=== PATIENT | male | born 1950 | race Caucasian/White ===

== ENCOUNTER → 2025-03-29 09:03 | Outpatient (REF) | payer MEDICARE, OTHER, SELFPAY | LOC: RCS 09:03 | PROVIDERS: ATTENDING PHYSICIAN Nuclear Medicine Nuclear Cardiology; FAMILY PHYSICIAN Internal Medicine | DX: I48.0 Paroxysmal atrial fibrillation (principal); R06.09 Other forms of dyspnea | CPT/HCPCS: 93306 ==

== ENCOUNTER → 2025-07-16 07:44 | Outpatient (REF) | payer MEDICARE, OTHER, SELFPAY | LOC: HWRCS 07:44 | PROVIDERS: ATTENDING PHYSICIAN Nuclear Medicine Nuclear Cardiology; FAMILY PHYSICIAN Internal Medicine | DX: I10 Essential (primary) hypertension (principal); I48.0 Paroxysmal atrial fibrillation; I48.4 Atypical atrial flutter; R06.09 Other forms of dyspnea | CPT/HCPCS: 78452; 93017; A9500; J2785 ==

== ENCOUNTER → 2025-08-23 09:44 | Outpatient (REF) | payer MEDICARE, OTHER, SELFPAY ==
[2025-08-23 11:01] LABS: Hematocrit 44.2 % (39.0-52.0); Hemoglobin 14.7 g/dL (13.0-18.0); Mean Corp Hgb Conc. 33.3 g/dL (33.0-37.0); Mean Corpuscular Volume 87.5 fL (80.0-94.0); Nucleated Red Blood Cells % 0 % (-); Platelet Count 164 10^3/uL (130-400); Red Cell Dist. Width 14.2 % (11.5-14.5)
[2025-08-23 11:07] LABS: INR 1.30; PT 15.9 Sec (11.4-14.6)
[2025-08-23 11:52] LABS: ALT (SGPT) 20 U/L (0-50); AST (SGOT) 23 U/L (17-59); Albumin 4.3 g/dl (3.5-5.0); Alkaline Phosphatase 58 U/L (38-126); Blood Urea Nitrogen 17 mg/dl (9-20); Calcium 8.9 mg/dl (8.4-10.2); Carbon Dioxide 30 mmol/L (22-30); Chloride 103 mmol/L (98-107); Glucose 96 mg/dl (70-99); Magnesium 2.2 mg/dl (1.6-2.3); Potassium 3.9 mmol/L (3.5-5.1); Sodium 138 mmol/L (135-145); Total Protein 6.7 g/dl (6.3-8.2); eGFR > 60.00
== END ==
LOC: SDSPAT 09:44
PROVIDERS: ATTENDING PHYSICIAN Internal Medicine Cardiovascular Disease; FAMILY PHYSICIAN Internal Medicine; OTHER PHYSICIAN Nuclear Medicine Nuclear Cardiology
DX: I48.0 Paroxysmal atrial fibrillation (principal)
CPT/HCPCS: 36415; 80053; 83735; 85025; 85610; 86850; 86900; 86901; 93005

== ENCOUNTER 2025-08-30 10:24 | Day surgery (SDC) | payer MEDICARE, OTHER, SELFPAY ==
[2025-08-23 10:12] VITALS: BMI 29.0
--- NOTE | 2025-08-23 10:52 | HPS.HSE ---
Family Physician
-
Family Physician: NO INTERVIEW UNKNOWN
Chief Complaint
-
Paroxysmal atrial fibrillation.
History of Present Illness
The patient is a 74 year old male presenting today for paroxysmal atrial fibrillation. He also has a history of atypical atrial flutter. He reports frequent palpitations, in addition to mild lightheadedness and dizziness, associated with
these diagnoses. The patient previously underwent 2 cardioversions, pulmonary vein isolation with CTI ablation in March 2017, and recurrent pulmonary vein isolation in November 2017 secondary to his atrial arrhythmias. He was offered a convergent MAZE
procedure in 2023; however, he ultimately declined. He is on current pharmacological therapy with Metoprolol Succinate and Dofetilide. Metoprolol dosing has been reduced from twice a day to once a day due to baseline bradycardia. He reports
compliance with Eliquis for oral anticoagulation. Given his significant symptoms, he would like to proceed with pulmonary vein isolation for more definitive arrhythmia management. He denies any current complaints today such as chest pain, shortness
of breath at rest, nausea, vomiting, diarrhea, sore throat, or fever. He does report a recent cough which is gradually improving.
Medical History
Past Medical History
Past Medical History: Reports Other
Additional Past Medical History:
1. Paroxysmal atrial fibrillation/atypical atrial flutter, status post cardioversion x2, pulmonary vein isolation with CTI ablation 03/2017, and pulmonary vein isolation 11/2017; pharmacological therapy with Dofetilide and Metoprolol Succinate, oral
anticoagulation with Eliquis.
2. Hypertension.
3. Hyperlipidemia.
4. PACs, asymptomatic.
5. Sinus bradycardia.
6. Moderate-severe left ventricular hypertrophy.
7. Mild mitral regurgitation.
8. Mild tricuspid regurgitation.
9. Sarcoidosis.
10. Obstructive sleep apnea, compliant with CPAP.
11. Chronic dyspnea on exertion.
12. GERD.
13. Hiatal hernia.
14. Colon polyps.
15. Diverticulosis.
16. Hemorrhoids.
17. Hepatic cysts.
18. Benign essential tremor, status post right chest wall stimulator.
19. Multilevel degenerative disc disease with stenosis.
20. Anxiety.
21. Erectile dysfunction.
Past Surgical History: Reports Other
Additional Past Surgical History:
1. Pulmonary vein isolation with CTI ablation.
2. Pulmonary vein isolation.
3. Cardioversion x2.
4. C5-C6 ACDF.
5. Right chest wall stimulator implant.
6. Bilateral cataract extraction.
7. Colonoscopy x3.
Social History
Tobacco: Non-smoker
Alcohol: Other (Social use reported. )
Personal:
Living: Other (He lives with his in a 2 story home. )
Family History
Family History: Not pertinent
Allergies / Home Medications
Allergy/Medication List:
HOME MEDICATIONS:
1. Tussin DM Max 10 ml p.o. three times a day as needed.
2. Acetaminophen 325 mg p.o. daily as needed.
3. Dofetilide 250 mcg p.o. every 12 hours.
4. Furosemide 40 mg p.o. daily.
5. Cholecalciferol 1000 units p.o. daily.
6. Magnesium 250 mg p.o. daily.
7. [place]-3/Krill oil 500 mg p.o. daily.
8. Ascorbic acid 250 mg p.o. daily.
9. Refresh eye drops one drop both eyes four times a day as needed.
10. Famotidine 40 mg p.o. at bedtime.
11. Amlodipine 2.5 mg p.o. at bedtime.
12. Rabeprazole 20 mg p.o. daily.
13. Folic acid 1 mg p.o. daily.
14. Mecobalamin 500 mcg p.o. daily.
15. Clonazepam 0.5 mg p.o. twice a day.
16. Benazepril HCL 40 mg p.o. daily.
17. Apixaban 5 mg p.o. twice a day.
18. Metoprolol Succinate 50 mg p.o. daily.
19. Prevagen 1 capsule p.o. daily.
20. Tadalafil 20 mg p.o. daily as needed.
ALLERGIES: Iodine. Sulfa.
Review of Systems
-
A 12 point ROS was completed and negative except as noted: Yes
Physical Exam
Vital Signs
Blood pressure 134/79. Heart rate 58. Respirations 18. Pulse ox 96% on room air.
Height 5 feet, 9 inches. Weight 88.9 kg. BMI 28.9.
Physical Exam
General: Well Developed, Well Nourished and No Apparent Distress
HEENT: NormoCephalic, Moist mucous membranes, Atraumatic and PERRLA
Respiratory: Clear
Cardiac: Bradycardia
GI: Soft, Non Tender and Non Distended
Musculoskeletal: No Edema, Normal Gait & Station and Other (Bilateral upper extremity tremor noted, left worse than right. )
Skin: Warm and Dry
Neuro: AO x 3 and Nonfocal/grossly intact
Laboratory Results
-
DIAGNOSTIC STUDIES as of 08/23/2025: White blood cell count 5.4. Hemoglobin 14.7. Platelet count 164,000. PT 15.9. INR 1.3. Sodium 138. Potassium 3.9. BUN 17. Creatinine 1.1. Glucose 96. Calcium 8.9. Magnesium 2.2. AST 23. ALT 20. Albumin 4.3. Type
and screen A positive.
EKG 08/23/2025: Sinus bradycardia. Minimal voltage criteria for LVH, may be normal variant. ST and marked T wave abnormality, consider anterolateral ischemia. QTcB 490. When compared with the EKG of 04/29/2022, no significant change was found.
Nuclear stress test 07/16/2025: Of note increased uptake apex of the heart with the possibility of ventricular hypertrophy this region. Correlate with echo. Inconclusive ECG for ischemia given the pharmacological study. Small fixed apical and apical
septal perfusion defect that more likely represents artifact. Systolic function is normal. The ejection fraction is 72%. Stress Risk is moderate risk study (1 - 3% [place] or /year) due to pharmacologic agent used.
Echocardiogram 03/29/2025: Normal left ventricular size and systolic function. No regional wall motion abnormalities are seen. LV ejection fraction is 68% by Sandoval's biplane method of discs. Moderate to severe concentric left ventricular
hypertrophy. Diastolic function indeterminate. Normal right ventricular size and function. Mild mitral regurgitation. Trileaflet aortic valve with normal leaflet excursion. No aortic regurgitation is seen. Tricuspid valve opens normally. Mild
tricuspid regurgitation. Estimated pulmonary artery pressure of 43 mmHg. Compared to prior study of 07/02/2021, pulmonary artery pressure now 43 mmHg, previously 33 mmHg.
Impression/Plan
-
IMPRESSION/PLAN:
1. Paroxysmal atrial fibrillation: The patient is in need of pulmonary vein isolation with Dr. Adi Gant on 08/30/2025. The benefits and risks of the procedure have been explained to the patient. The patient understands these risks and wishes to
proceed. He will not be required to undergo a pre-procedural transesophageal echocardiogram as he has been compliant with his home oral anticoagulation. He is aware to continue his Eliquis uninterrupted prior to his procedure. Dofetilide and
Tadalafil will be held 48 hours prior. He will take no medications the morning of his ablation.
[2025-08-30] VITALS (10 sets, daily range): BP systolic 116–158; BP diastolic 61–99; BMI 29.0
[2025-08-30 14:27] LABS: ACT-LR - POC 258 Seconds (116-155)
[2025-08-30 14:54] LABS: ACT-LR - POC 337 Seconds (116-155)
--- NOTE | 2025-08-30 15:10 | ITS.CL.ABL ---
[employer] - Ablation
Ablation
Procedure Report:
ELECTROPHYSIOLOGY ABLATION STUDY
DATE:: August 30, 2025�����������������������������REFERRING: Dr. Lex Costello
INDICATION: Paroxysmal supraventricular tachycardia in the form of atrial fibrillation.� Prior history of pulm vein isolation as above. Prior history of CTI flutter ablation as above.
HISTORY: See H and P.��See H&P
ANTIARRHYTHMIC DRUG: Dofetilide
PRE-PROCEDURE BRAN: On intracardiac ultrasound no left atrial pended thrombus with severe left atrial enlargement 67 cm
PRESENTING RHYTHM: Sinus bradycardia
'TIME-OUT':��called and confirmed.
SEDATION/ANESTHESIA:��provided via the anesthesia department using general anesthesia (LMA).
INTRAVENOUS/ARTERIAL ACCESS:
Right femoral venous -8Fr
Left femoral venous - 8 Fr, 6 Fr
Psaopo-ya-oocet suture bilaterally
Ultrasound guidance for bilateral femoral vein access was utilized by me to obtain access with demonstration of normal anatomy
CHADS-VASC Score:
HAS-Bled Score
PROCEDURE:
1.��A decapolar CS catheter was placed within the CS for mapping and pacing.��This was also used as the reference catheter for the 3-D map.
2. The intracardiac ultrasound catheter was positioned in the RA to identify the FO for targeting of transseptal puncture, assist��in identification of the pulmonary vein ostia, monitoring pre and post ablation pulmonary vein flow velocities,
monitoring for 'bubble' formation during RF application as a sign of thermal injury,��and to monitor for pericardial effusion during mapping and ablation procedure.���Left atrial size, LV ejection fraction, and pulmonary vein flows were monitored
pre and post ablation procedure. The other valves were inspected and found to be free of significant regurgitation or stenosis.
3.��Half of the calculated heparin bolus was administered prior to the first transeptal puncture.��Transseptal puncture was performed to diagnose RA and LA pressure so that safety of LA mapping and ablation could be further assessed, and to access
the left atrium and pulmonary veins for mapping and ablation.��This entailed advancing an 10 [place] steerable sheath with dilator into the superior vena cava and withdrawing both (monitoring intracardiac ultrasound, fluoroscopy and tip pressure)
with the tip oriented toward the atrial septum.��The fossa ovalis was engaged (indicated by sudden displacement of the sheath tip as well as tenting of the fossa seen on intracardiac ultrasound).��Left atrial access required a pass with the
Brockenbrough needle extended.��Left atrial catheter position was confirmed by pressure monitoring (RA mean pressure 4 mm Hg and LA mean presure 10 mm Hg), LA saturation (99%),��as well as fluoroscopy.��The sheath was advanced over the dilator and
positioned in the left atrium.��This procedure was repeated for the Agilis sheath.��The remainder of the calculated heparin bolus was administered and heparin was
infused to maintain ACT at 300 -350 seconds throughout the case.
4.��RA pacing was performed via the proximal decapolar poles and LA pacing was performed via the distal decapolr poles.
5. A quadrapolar catheter was first positioned at the His position for His Bundle recording which was tagged via the 3-D Navex sytem, and then passed to the RVA for RV pacing and recording.
6. The lattice catheter was placed in each of the 4 of the LIPV, LSPV, RSPV and the RIPV.��
7.��Next, a 3-D map was created using Navex.���A 3-D reconstructed CT image was compared to the 3-D Navex map to assist in anatomic interpretation, mapping and ablation.��The CT image and the NavX image were fused.
8. Baseline electroanatomic voltage mapping demonstrated ingrowth into the right pulmonary vein paul particularly on the septal aspect and posterior wall aspect. From the ostium distally the right superior pulmonary vein and right inferior pulm
veins were isolated. On the left veins there was focal connection on the left atrial appendage side of the ligament Allan. We addressed the pulmonary vein reconnection's first with wide circumferential ablation around the left and right veins.
Additional substrate modification was performed on the left atrial appendage side of the root again of Allan and at the interatrial fossa.. We then performed a box lesion set with a roofline and floor line and connecting lines in the posterior
wall rendering the posterior wall isolated. Entrance and exit block was confirmed in all 4 pulmonary veins as well as the posterior wall after ablation and EP study did not induce any other tachyarrhythmia.
9. The prior CTI flutter ablation was reconfirmed with coronary sinus pacing and demonstrating intra isthmus conduction time of 150 ms with bidirectional block and wide split double potentials from tricuspid annulus back towards the IVC.
TOTAL FLOURO TIME: 12.4 minutes 123 mGy
TOTAL RF DURATION: 0 minutes
REVERSAL OF HEPARIN: 35 mg of protamine, slow IV administration
COMPLICATIONS:
None
Intracardiac US shows no pericardial effusion post ablation.
SUMMARY:��
Complex left atrial mapping and ablation.
Reisolation of the pulmonary veins as above, isolation of the left atrial posterior wall as above. Extra pulmonary vein substrate at the base of left atrial appendage and interatrial fossa was performed.
RECOMMENDATIONS:
1. Admit for observation and discharge in less than 24 hours on 08/31/2025
2. Resume anticoagulation
3.��Consider discontinuation of dofetilide in 3 months
4.��Ambulate 4 hours
Copy to: Dr. Lex Costello
--- NOTE | 2025-08-30 18:36 | SUR.OPER ---
Pt received post procedure at 1720. Pt alert and oriented but drowsy. Denies any pain or sob. O2 on at 2LNC untill 1800. Room air sat 95%. Bilateral groin site dressings dry and intact, site WNL.
--- NOTE | 2025-08-30 19:00 | PTCARENOTE ---
report received from previous RN, walking rounds done. pt in bed, at bedside. pt AAOx4, denies any pain at this time. SR on monitor, HR 70s. +peripheral pulses. B/L groin sites stable, CDI. figure 8 sutures removed by previous RN @ 1900. B/L
breath sounds present. POX 93% on room air. +BS. pt has not yet voided. PIV intact and patent. see worklist for full assessment, VS, and interventions.
--- NOTE | 2025-08-30 19:54 | PTCARENOTE ---
pt assisted OOB to BR, oozing noted from R groin. pt assisted back to bed. manual pressure applied x 20 min. VSS. new dressing applied w external hemostasis pad.
[2025-08-30] MEDS: ELIQUIS 5 MG PO (20:03)
[2025-08-30] MEDS: TIKOSYN 250 MCG PO (20:06)
[2025-08-30] MEDS: PEPCID 40 MG PO (20:07)
--- NOTE | 2025-08-31 00:13 | PTCARENOTE ---
Received pt from nightshift RN at 2300 resting in bed. SR on tele, HR 70's. pt denies any CP or SOB at this time. B/L groin sites C/D/I, no bleeding or hematoma noted at this time. Educated pt on activity restrictions, verbalizes understanding.
Urinal provided to pt. Updated pt on plan of care. Encouraged pt to call RN w/ any questions/concerns. Call jenkins within reach.
[2025-08-31 04:05] VITALS: BP 127/68
[2025-08-31 04:21] VITALS: BMI 28.1
[2025-08-31 05:01] LABS: Hematocrit 39.2 % (39.0-52.0); Hemoglobin 13.4 g/dL (13.0-18.0); Mean Corp Hgb Conc. 34.2 g/dL (33.0-37.0); Mean Corpuscular Volume 88.1 fL (80.0-94.0); Platelet Count 158 10^3/uL (130-400); Red Cell Dist. Width 13.9 % (11.5-14.5)
[2025-08-31 05:38] LABS: Blood Urea Nitrogen 18 mg/dl (9-20); Calcium 8.4 mg/dl (8.4-10.2); Carbon Dioxide 23 mmol/L (22-30); Chloride 108 mmol/L (98-107); Estimated Creatinine Clearance 65 ml/min; Glucose 124 mg/dl (70-99); Magnesium 2.3 mg/dl (1.6-2.3); Potassium 4.4 mmol/L (3.5-5.1); Sodium 138 mmol/L (135-145); eGFR > 60.00
[2025-08-31 07:34] VITALS: BP 159/83
[2025-08-31] MEDS: PROTONIX 40 MG PO (07:56)
[2025-08-31] MEDS: TIKOSYN 250 MCG PO (07:56)
[2025-08-31] MEDS: ELIQUIS 5 MG PO (07:56)
[2025-08-31] MEDS: TOPROL XL 50 MG PO (07:57)
[2025-08-31] MEDS: ZESTRIL 40 MG PO (07:57)
[2025-08-31] MEDS: LASIX 40 MG PO (07:57)
[2025-08-31] MEDS: NORVASC 2.5 MG PO (07:57)
--- NOTE | 2025-08-31 08:40 | W.PN.CARDCBS ---
Addendum entered and electronically signed by Adi Gant MD 08/31/25 09:14:
patient seen and examined
agree with CARD WRITER HAND note and assessment
agree with CARD WRITER HAND plan
SR on tele
patient asymptomatic this am no chest pain or groin pain
exam:
aao x 3
non focal neurologically
groins without hematoma
cor regular
remainder as per CARD WRITER HAND note
PCP: Chase Chavez DO
CDY: Lex Costello DO
74 y/o, PAF/AFlutter w/prior PVI/CTI 2017 and redo PVI 2018, presents with recurrent symptomatic AFib. [id number] (age, HTN), maintained on eliquis, dofetilide. Presented to EP lab yesterday, s/p PFA with reisolation of PV, LAPW isolation, and
extra PV substrate at base of SHERMAN and interatrial fossa performed. Tele stable overnight in SR without acute changes.
IMPRESSION:
Recurrent PAF
S/P PFA, 08/30/25
Prior PVI/CTI flutter ablation (2017) and Redo PVI (2018)
HTN
HLD
mod-sev LVH
Sarcoidosis
KALEIGH/CPAP
GERD
DDD
PLAN:
Tele- NSR no acute changes
Bilat groin sites without ht/bleeding
OOB ambulating
resumed Eliquis last evening
Continue dofetilide and consider discontinuation in 3 months
followup w/Dr. Costello as scheduled
home today
Original Note:
Today's Communication / Plan
-
Continue eliquis, dofetilide
cardiology followup in 3 months
home today
Impression / Plan
-
PCP: Chase Chavez DO
CDY: Lex Costello DO
74 y/o, PAF/AFlutter w/prior PVI/CTI 2017 and redo PVI 2018, presents with recurrent symptomatic AFib. [id number]=1 (age, HTN), maintained on eliquis, dofetilide. Presented to EP lab yesterday, s/p PFA with reisolation of PV, LAPW isolation, and
extra PV substrate at base of SHERMAN and interatrial fossa performed. Tele stable overnight in SR without acute changes.
IMPRESSION:
Recurrent PAF
S/P PFA, 08/30/25
Prior PVI/CTI flutter ablation (2017) and Redo PVI (2018)
HTN
HLD
mod-sev LVH
Sarcoidosis
KALEIGH/CPAP
GERD
DDD
PLAN:
Tele- NSR no acute changes
Bilat groin sites without ht/bleeding
OOB ambulating
resumed Eliquis last evening
Continue dofetilide and consider discontinuation in 3 months
followup w/Dr. Costello as scheduled
home today
Progress Note - Fluxer
Subjective
Date of Service: August 31, 2025
Denies cp/palps/dyspnea
oob ambulating
groin sites without pain
Objective
Labs:
08/31/25 04:22
08/31/25 04:22
Labs
Hgb 13.4 g/dL (13.0-18.0) 08/31/25 04:22
Hct 39.2 % (39.0-52.0) 08/31/25 04:22
Plt Count 158 10^3/uL (130-400) 08/31/25 04:22
Sodium 138 mmol/L (135-145) 08/31/25 04:22
Potassium 4.4 mmol/L (3.5-5.1) 08/31/25 04:22
BUN 18 mg/dl (9-20) 08/31/25 04:22
Creatinine 1.0 mg/dL (0.7-1.3) 08/31/25 04:22
Glucose 124 mg/dl (70-99) H 08/31/25 04:22
Vital Signs and I&O:
Vital Signs
Temp Pulse Resp BP Pulse Ox
97.7 F 75 20 127/68 94
08/31/25 07:33 08/31/25 07:00 08/31/25 07:33 08/31/25 04:05 08/31/25 07:33
Vital Signs
Temp Pulse Resp BP Pulse Ox
97.7 F 75 20 127/68 94
08/31/25 07:33 08/31/25 07:00 08/31/25 07:33 08/31/25 04:05 08/31/25 07:33
Intake & Output
08/29/25 08/30/25 08/31/25 09/01/25
06:59 06:59 06:59 06:59
Intake Total 1440 / 1440
Output Total 375 / 375
Balance 1065 / 1065
Physical Exam
Physical Exam
AAOx3, MAEE 5/5
RRR S1 S2 no murmurs
CTA bilat, non labored
soft abd, + bs
bilat groin sites without ht/bleeding, non tender
bilat extremities w/palpable distal pulses, no edema
--- NOTE | 2025-08-31 08:56 | PTCARENOTE ---
The patient is aaox3. Vital signs are stable. NSR is noted on the monitor. BL groin sites are c/d/i. He has no complaints of pain, sob, or discomfort. Activity resrtiction and w
--- NOTE | 2025-08-31 08:58 | PTCARENOTE ---
The patient is aaox3. Vital signs are stable. NSR is noted on the monitor. BL groin sites are c/d/i. He has no complaints of pain, sob, or discomfort. Activity restrictions and post ablation wound care reviewed with the patient.
--- NOTE | 2025-08-31 09:29 | W.DS.TRANS ---
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
-
Discharge Instructions:
Discharge Diagnosis/Procedures Atrial fibrillation post ablation
Diet Low Cholesterol
Driving Restrictions No driving for 24 hours
Instructions:
Stand-Alone Forms: DC Instructions- Cath/EP Lab
Changes to Home Medications: No
Discharge Medications:
DC Medications w/original date entered in [facility]
folic acid 1 mg tablet 1 mg PO DAILY Supplement 09/04/13
clonazepam 0.5 mg tablet 0.5 mg PO BID Neurological Condition 12/25/20
apixaban 5 mg tablet (Eliquis) 5 mg PO BID Blood clot prevention/tx ##0 01/08/21
benazepril 40 mg tablet (Lotensin) 40 mg PO DAILY Blood pressure ##0 01/08/21
dofetilide 250 mcg capsule 250 mcg PO Q12 Arrhythmia #60 caps 07/23/21
[place]-3 Krill Oil 500 mg PO DAILY 08/21/25
Prevagen 1 cap PO DAILY 08/21/25
acetaminophen 325 mg capsule 325 mg PO Q6HPRN PRN pain 08/21/25
amlodipine 2.5 mg tablet 2.5 mg PO DAILY 08/21/25
ascorbic acid (vitamin C) 250 mg tablet (Vitamin C) 250 mg PO DAILY 08/21/25
carboxymethylcellulose sodium 1 % eye liquid gel drops 1 drp ophthalmic (eye) QID PRN dry eyes 08/21/25
cholecalciferol (vitamin D3) 25 mcg (1,000 unit) capsule (Vitamin D3) 25 mcg PO DAILY 08/21/25
dextromethorphan-guaifenesin 10 mg-100 mg/5 mL oral liquid 10 ml PO TIDPRN PRN cough/congestion 08/21/25
famotidine 40 mg tablet 40 mg PO HS 08/21/25
furosemide 40 mg tablet 40 mg PO DAILY 08/21/25
magnesium 250 mg PO DAILY 08/21/25
metoprolol succinate 50 mg tablet,extended release 24 hr 50 mg PO DAILY 08/21/25
rabeprazole 20 mg tablet,delayed release 20 mg PO DAILY 08/21/25
tadalafil 20 mg tablet 20 mg PO DAILY PRN ED 08/21/25
cyanocobalamin (vitamin B-12) 500 mcg tablet 500 mcg PO DAILY 08/30/25
Home Medication Changes
Pending Results: No
--- NOTE | 2025-08-31 11:01 | CM ---
Chart reviewed. Patient is independent of ADLS, lives with his in a [address], [address], 0 [address]ME. Plan is for the patient to return home.
== END 2025-08-31 10:51 | disposition home or self-care (01) ==
LOC: CATH 10:24
PROVIDERS: Nurse Practitioner Adult Health; ATTENDING PHYSICIAN Internal Medicine Cardiovascular Disease; FAMILY PHYSICIAN Internal Medicine; OTHER PHYSICIAN Nuclear Medicine Nuclear Cardiology
DX: I48.0 Paroxysmal atrial fibrillation (principal); I48.4 Atypical atrial flutter; D86.9 Sarcoidosis, unspecified; E78.5 Hyperlipidemia, unspecified; F41.9 Anxiety disorder, unspecified; G25.0 Essential tremor; G47.33 Obstructive sleep apnea (adult) (pediatric); I08.1 Rheumatic disorders of both mitral and tricuspid valves; I10 Essential (primary) hypertension; I47.10 Supraventricular tachycardia, unspecified; I48.92 Unspecified atrial flutter; K21.9 Gastro-esophageal reflux disease without esophagitis; K76.89 Other specified diseases of liver; Z79.01 Long term (current) use of anticoagulants; Z79.899 Other long term (current) drug therapy; Z86.0100 Personal history of colon polyps, unspecified; Z87.19 Personal history of other diseases of the digestive system; Z88.1 Allergy status to other antibiotic agents; Z88.2 Allergy status to sulfonamides; Z88.8 Allergy status to other drugs, medicaments and biological substances; Z91.041 Radiographic dye allergy status; Z98.1 Arthrodesis status; Z98.41 Cataract extraction status, right eye; Z98.42 Cataract extraction status, left eye
CPT/HCPCS: C1894; C1730; C1766; C1733; C1892; 80048; 83735; 85027; 85347; 93005; 93656; 93657